=== PATIENT | female | born 1985 | race Caucasian/White ===

== ENCOUNTER 2024-04-05 14:56 | Inpatient (IN) | payer BC, SELFPAY ==
[2024-04-03] VITALS (7 sets, daily range): BP systolic 125–197; BP diastolic 79–141; BMI 27.1; BMI 26.3
--- NOTE | 2024-04-03 13:51 | EDRN ---
Dr. Prakash is in room w/pt. IV started though unable to draw any blood at this time.
--- NOTE | 2024-04-03 13:52 | EDRN ---
Pt on arrival to room pt shaking all over her body, breathing fast in a way as if unable to catch her breath, muscles tight and all over shaking. Attempting IV access this RN speaking calmly to pt attempting to calm her and pt after IV access
obtained calmed down, requested a blanket and is now quiet. BP remains very high at this time.
--- NOTE | 2024-04-03 13:58 | ED.GENMED ---
History of Present Illness
General
Chief Complaint: Anxiety
Source: patient and other (Staff from patient's behavioral health unit)
Exam Limitations: none
Time Seen by Provider: 04/03/24 13:43
Nursing documentation reviewed up to this point in time: agreed with
History of Present Illness
History of Present Illness:
38-year-old female with a past medical history of PTSD and panic attacks presents to the emergency room from [id number] where she has been staying as part of her 30-day program; she presents for poorly controlled panic
attacks. Patient apparently checked into this program 2 days, checked in due to increasing panic attacks for the past 2 weeks or so. She denies any specific trigger. She says she will get extremely anxious began hyperventilating have pain in her
chest, paresthesias all over, tremulous. Her symptoms do not resolve until she gets medication for anxiety. According to staff member from the facility who accompanies patient, she has been in the state of extreme panic over the past 12 hours.
Apparently she will be in extreme panic, will get medications to sedate her and she will fall asleep; apparently when she wakes up she is once again in extreme panic. This morning despite receiving 1 mg total of Ativan, 0.1 mg of clonidine, 10 mg
of Lexapro, 25 mg of Vistaril, 25 mg of quetiapine patient still in extreme panic and so she was brought to the emergency room for assessment. On arrival she was hyperventilating and appeared extremely anxious but shortly after settling into the
bed patient became much more calm and is now resting comfortably and somewhat sedate status post above medications. She says that her symptoms have resolved with medications but she is very anxious that when she wakes up again she will once again
be in a panic. She has no symptoms at time of my assessment. Denies suicidality or homicidality.
Past History
Past History
ED Past Medical History: Other ()
ED Past Surgical History: Orthopedic (knee)
Social History
Tobacco: Non-smoker
Alcohol: None
Living: with family
Employment: Employed
Family History
Family History: Other (Noncontributory)
Review of Systems
Review of Systems
All Other Systems: ROS reviewed and negative except as documented in HPI and ROS
Constitutional: Denies fever
Respiratory: Denies trouble breathing
Cardiac: Denies chest pain
ABD/GI: Denies abdominal pain
: Denies flank pain
Musculoskeletal: Denies neck pain or back pain
Neurological: Denies headache
Psychiatric: Reports anxiety; Denies suicidal
Phy Exam
Physical Exam
Physical Exam:
Note: I witnessed patient walking down the hallway towards her room and she was hyperventilating, crying and was very anxious appearing; my exam took place after she arrived in her room and had resting in bed for short period
General: Sleeping comfortably in the bed, tired but arousable, not in any distress
Head: Normocephalic, atraumatic
Eyes: Conjunctiva normal, EOMI
Throat: Airway intact, handling secretions
Neck: Trachea midline, supple without meningismus
Lungs: Clear to auscultation bilaterally, no wheezing, rales, rhonchi
Heart: Regular rate and rhythm, no murmurs, gallops, or rubs�tachycardia resolved by my assessment
Abd: Soft, non distended, nontender
Neuro: No gross deficits
Skin: no rash
Extremities: No edema in extremities, equal pulses in all extremities
Scores
Heart Failure Risk
Heart Failure Risk Score: Not Applicable
Heart Score for Chest Pain Patients
STEMI patient?: Not applicable
Withdrawal Assessment of Alcohol
Withdrawal Assessment Completed?: Not applicable
Course
Orders/Labs/Results
Orders:
Orders
04/03/24 13:44
Lorazepam [Ativan] 1 mg IV NOW STA
04/03/24 13:45
Drug Screen, Urine [Urine Drug Abuse Screen] Urgent
Test Result ONCE
04/03/24 13:57
Crisis Consult Routine
Reason for Consult: panic
04/03/24 14:04
Electrocardiogram (*1) Urgent
Reason for Study: Chest Pain
EKG- Treatment ONCE
04/03/24 14:25
Alcohol Urgent
Complete Blood Count/With Diff Urgent
Comprehensive Metabolic Panel Urgent
HCG, Serum Qualitative Screen Urgent
Salicylate Urgent
TSH Reflex To Free T4 Urgent
Troponin I Urgent
04/03/24 14:41
Lorazepam [Ativan] 0.5 mg IV NOW STA
Lorazepam [Ativan] 2 mg .ROUTE .STK-MED ONE
04/03/24 14:49
PSYCHIATRY CONSULT Urgent
Consulting Provider: Jose A Thayer
Was physician already notified: Yes
04/03/24 15:11
Haloperidol Lactate [Haldol] 1 mg IV NOW STA
Lorazepam [Ativan] 0.5 mg IV NOW STA
04/03/24 15:15
CT Chest/abd/pelvis Angio W/wo Urgent
Comment:
Reason For Exam: severe CP, eval for aortic dissection
04/03/24 17:09
Aspirin Chewable [Low Strength Aspirin] 324 mg PO NOW STA
Metoprolol [Lopressor] 5 mg IV NOW STA
04/03/24 17:30
Troponin I Urgent
Abnormal Lab Results
04/03/24
14:25
WBC 12.7 H 10^3/uL
(4.8-10.8)
Abs Immat Gran (auto) 0.1 H 10^3/uL
(0-0.05)
Absolute Neuts (auto) 11.2 H 10^3/uL
(1.4-6.5)
Absolute Lymphs (auto) 1.0 L 10^3/uL
(1.2-3.4)
Neutrophils % 88.3 H %
(42.2-75.2)
Lymphocytes % 7.8 L %
(20.5-51.1)
Glucose 113 H mg/dl
(70-99)
AST 37 H U/L
(14-36)
ALT 36 H U/L
(0-35)
Troponin I 0.061 H* ng/ml
Salicylates < 1.0 L mg/dl
(2.0-20.0)
04/03/24 14:25
04/03/24 14:25
Vital Signs
Initial and Last Documented VS:
Initial Vital Signs
Temp Pulse Resp Pulse Ox
36.7 C 120 16 94
04/03/24 12:59 04/03/24 12:59 04/03/24 12:59 04/03/24 12:59
Last Documented Vital Signs
Temp Pulse Resp BP Pulse Ox
36.7 C 120 16 170/106 94
04/03/24 12:59 04/03/24 12:59 04/03/24 12:59 04/03/24 14:31 04/03/24 12:59
MDM/Problems Addressed
Differential Diagnosis Includes:
Panic attacks, dysrhythmia, hyperthyroidism
MDM/Problems Addressed:
38-year-old female presents for evaluation of poorly controlled panic attacks�she is currently checked in in a behavioral health program but they are having difficulty controlling her panic attacks�essentially she will be in a state of panic
requiring significant sedating medications and when she wakes up/medications wear off she becomes once again in a state of extreme panic. Initially on her arrival she was very anxious appearing and hyperventilating, tearful. Shortly after settling
into the room she became much more calm�suspect that medications given prehospital began to take effect. Will place an IV send labs including a CBC and a CMP, thyroid studies, hCG. Check EKG and troponin in an abundance of caution. I did discuss
the case with crisis team to perform an assessment�unclear if inpatient psychiatric treatment might benefit patient; she is currently staying overnight at this program but it appears to be more of a residential program rather than inpatient
psychiatric unit.
Patient is becoming increasingly anxious she says that she is feeling tremendous panic and is requesting medication. Will treat with Haldol and Ativan.
Patient's initial blood work came back she is a leukocytosis to 12.7. Her CMP shows no clinically significant abnormalities. Her initial troponin is elevated to 0.061�will need to trend this value but certainly with this finding concerned that her
symptoms were not panic related. Will send for a CTA of the chest given her severe hypertension and rule out dissection.
CTA no dissection no PE. Suspect that tachycardia and hypertension related to panic may account for troponin elevation but nevertheless we will admit for trending of troponins. Will treat with aspirin. Toprol for tachycardia. Symptomatic
treatment for panic. Case discussed with hospitalist for admission. I did discuss with psychiatry who saw patient in the ER and are following.
Chronic conditions affecting care:
PTSD/panic attacks
Acute Exacerbation and/or Progression of Chronic Illness:
Acutely hypertensive in the setting of panic attack�resolved as patient became more calm, no indication for emergent antihypertensives
Acute Exacerbation and/or Progression of Chronic Illness: HTN
*Pulse Oximetry
Patient hypoxic: no
*Critical Care Note
Total Time (30-74mins, 75-104mins- exclusive of procedures): Not Applicable
Data Reviewed
Source: patient and other (Staff member from [facility])
Patient Management
Discussion with other providers: Hospitalist (Discussed with hospitalist), Inspection Clerk (Discussed with psychiatrist) and Other (Discussed with our crisis staff)
Escalation/DeEscalation of care consider admission/obs:
Admission indicated
ED Attending Note
-
Portions of this chart may have been created with voice recognition software.� Occasional wrong word or��sound alike� substitutions may have occurred due to the inherent limitations of voice recognition software.
Discharge Plan
Departure
Patient Disposition: Admit
Date of Disposition: 04/03/24
Time of Disposition: 17:18
Admit to doctor: Eliceo
Presentation/result/management discussed w/ accepting MD/DO: Hospitalist
Discharge Problem:
Chest pain, Panic attack, Hypertension
Interventions
Interventions:
*Risk Screen - Suicide Last Done: 04/03/24 12:59
*General Assessment Last Done: 04/03/24 13:27
*Neglect/Abuse Screening Last Done: 04/03/24 12:59
ED- Fall Risk Assessment Last Done: 04/03/24 13:27
*ED COVID-19 Vaccine History Last Done: 04/03/24 13:27
ED-Psychological Assessment Last Done: 04/03/24 13:40
Discharge Date and Time
Print Language: AZERI
--- NOTE | 2024-04-03 14:30 | EDRN ---
Red from Crisis in room speaking w/ pt at this time.
--- NOTE | 2024-04-03 14:31 | EDRN ---
Labs drawn and sent. Pt somnolent though arousable to voice.
--- NOTE | 2024-04-03 14:32 | EDRN ---
Pt nodded awareness of need for urine sample and cup and wipes left in room in window behind grease maker.
[2024-04-03 14:33] LABS: % Basophils 0.2 % (0-2); % Immature Granulocytes 0.5 % (0-0.5); % Lymphocytes 7.8 % (20.5-51.1); % Monocytes 3.2 % (1.7-9.3); % Neutrophils 88.3 % (42.2-75.2); Absolute Immature Granulocytes 0.1 10^3/uL (0-0.05); Absolute Monocytes 0.4 10^3/uL (0.1-0.6); Absolute Neutrophils 11.2 10^3/uL (1.4-6.5); Hematocrit 37.6 % (37.0-47.0); Hemoglobin 13.3 g/dL (12.0-16.0); Mean Corp Hgb Conc. 35.4 g/dL (33.0-37.0); Mean Corpuscular Hgb 30.5 pg (27.0-31.0); Mean Corpuscular Volume 86.2 fL (81.0-99.0); Mean Platelet Volume 9.7 fL (7.4-10.4); Nucleated Red Blood Cells % 0 %; Platelet Count 259 10^3/uL (130-400); Red Blood Cell Count 4.36 10^6/uL (4.20-5.40); Red Cell Dist. Width 12.7 % (11.5-14.5); White Blood Cell Count 12.7 10^3/uL (4.8-10.8)
[2024-04-03 14:44] LABS: HCG, Serum Qualitative Screen Negative
--- NOTE | 2024-04-03 14:45 | EDRN ---
Pt when Etherea from crisis was in room suddenly started moaning and crying out w/ shaking w/ renewed panic symtpoms.
[2024-04-03 14:46] LABS: ALT (SGPT) 36 U/L (0-35); AST (SGOT) 37 U/L (14-36); Albumin 4.7 g/dl (3.5-5.0); Alkaline Phosphatase 46 U/L (38-126); Blood Urea Nitrogen 15 mg/dl (7-17); Calcium 9.7 mg/dl (8.4-10.2); Carbon Dioxide 25 mmol/L (22-30); Chloride 99 mmol/L (98-107); Estimated Creatinine Clearance 96 ml/min; Glucose 113 mg/dl (70-99); Potassium 3.6 mmol/L (3.5-5.1); Salicylate < 1.0 mg/dl (2.0-20.0); Sodium 136 mmol/L (135-145); Total Bilirubin 1.1 mg/dl (0.2-1.3); Total Protein 7.4 g/dl (6.3-8.2); eGFR > 60.00
[2024-04-03] MEDS: ATIVAN 0.5 MG IV ×2 (14:48→15:16)
[2024-04-03 14:54] LABS: Alcohol None Detected
[2024-04-03 15:01] LABS: Troponin I 0.061 ng/ml
[2024-04-03 15:17] LABS: TSH Reflex To Free T4 1.15 uIU/ml (0.47-4.68)
[2024-04-03] MEDS: HALDOL 1 MG IV (15:17)
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
[2024-04-03] MEDS: LOW STRENGTH ASPIRIN 324 MG PO (17:29)
[2024-04-03] MEDS: LOPRESSOR 5 MG IV (17:29)
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
--- NOTE | 2024-04-03 17:35 | W.PN.UPDATE ---
Update Note
Progress Note Update
I saw and examined the patient.
The CLAIM REP Manasa note was reviewed and I agree with the note.
Comment: 38 y/o F hx of PTSD and panic attacks presents to ER for poorly controlled panic attacks. She is currently in [facility]; checked in 2 days ago for increasing anxiety x 2 weeks. She reports symptoms such as
pain in her chest, paresthesias all over, tremulous which are relieved only by meds. At present patient more calm, resting comfortably.
In ER, trop was .061 and patient has repeat pending at 530pm. CT-PE study was negative. Patient admitted obs/tele.
exam:
General: No Apparent Distress
HEENT: Normocephalic and Atraumatic
Respiratory: Negative Wheezes
Cardiac: Regular Rhythm and S1/S2
GI: Nondistended and Tender
Genito-urinary: No Costovertebral Tender
Musculoskeletal: No Edema
Neuro: AO x 3
Hematologic / Lymphatic: No Lymphadenopathy
Psych: Anxious
Assessment:
Nonischemic myocardial injury likely from panic/tachycardia
- trend trops to peak
- tele
- repeat EKG if chest pain
- Echo Friday; may consider stress test
- start Toprol XL 25mg
- PE study negative
Leukocytosis
- check UA; if persistently febrile then Bcx
- check COVID
Essential HTN
- start Toprol XL 25mg
Panic attacks
- psych consulted; prn Ativan
- continue Lexapro
DVT ppx: SCDs
Code: Full
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
[2024-04-03 18:40] LABS: Urine Albumin Trace (Neg - Trace); Urine Bilirubin Negative (Negative); Urine Character Clear (Clear); Urine Color Yellow; Urine Glucose Negative (Negative); Urine Ketone 3+ (Negative); Urine Leukocyte Negative (Negative); Urine Nitrite Negative (Negative); Urine Occult Blood Negative (Negative); Urine Specific Gravity 1.015 (<1.030); Urine Urobilinogen Negative (Neg - 1+)
[2024-04-03 18:47] LABS: Amphetamines Negative (Negative); Barbiturates Negative (Negative); Benzodiazepines Positive (Negative); Buprenorphine Negative (Negative); Cocaine Negative (Negative); Marijuana Positive (Negative); Methadone Negative (Negative); Methamphetamines Negative (Negative); Opiates Negative (Negative); Phencyclidine Negative (Negative); Tricyclic Antidepressants Negative (Negative)
[2024-04-03 19:02] LABS: Troponin I 0.069 ng/ml
[2024-04-03 19:05] LABS: Fentanyl, Urine Negative (Negative)
[2024-04-03] MEDS: TOPROL XL 25 MG PO (19:10)
[2024-04-03 19:39] LABS: COVID-19 Antigen Negative (Negative)
[2024-04-03] MEDS: SEROQUEL 25 MG PO (22:43)
[2024-04-03] MEDS: TYLENOL 650 MG PO (22:43)
--- NOTE | 2024-04-03 22:48 | PTCARENOTE ---
Pt arrived via stretcher from ED and ambulated into room 337-1 safely. Pt oriented to room, call sandoval within reach, able to make needs known.
[2024-04-04 03:26] VITALS: BP 106/68
[2024-04-04 06:02] LABS: % Basophils 0.7 % (0-2); % Eosinophils 0.5 % (0-6); % Immature Granulocytes 0.2 % (0-0.5); % Lymphocytes 36.1 % (20.5-51.1); % Monocytes 8.5 % (1.7-9.3); Absolute Basophils 0.1 10^3/uL (0-0.2); Absolute Monocytes 0.7 10^3/uL (0.1-0.6); Absolute Neutrophils 4.5 10^3/uL (1.4-6.5); Hematocrit 36.7 % (37.0-47.0); Hemoglobin 12.7 g/dL (12.0-16.0); Mean Corp Hgb Conc. 34.6 g/dL (33.0-37.0); Mean Corpuscular Hgb 30.3 pg (27.0-31.0); Mean Corpuscular Volume 87.6 fL (81.0-99.0); Mean Platelet Volume 10.1 fL (7.4-10.4); Nucleated Red Blood Cells % 0 %; Platelet Count 248 10^3/uL (130-400); Red Blood Cell Count 4.19 10^6/uL (4.20-5.40); Red Cell Dist. Width 12.9 % (11.5-14.5); White Blood Cell Count 8.4 10^3/uL (4.8-10.8)
[2024-04-04 06:22] LABS: ALT (SGPT) 32 U/L (0-35); AST (SGOT) 32 U/L (14-36); Alkaline Phosphatase 39 U/L (38-126); Blood Urea Nitrogen 12 mg/dl (7-17); Calcium 9.3 mg/dl (8.4-10.2); Carbon Dioxide 28 mmol/L (22-30); Chloride 100 mmol/L (98-107); Estimated Creatinine Clearance 96 ml/min; Glucose 95 mg/dl (70-99); HDL Cholesterol 46 mg/dl; LDL Cholesterol, Calculated 118 mg/dl; Potassium 3.6 mmol/L (3.5-5.1); Sodium 136 mmol/L (135-145); Total Cholesterol 178 mg/dl (50-199); Total Protein 6.7 g/dl (6.3-8.2); Triglyceride 72 mg/dl (10-149); Very Low Density Lipoprotein 14 mg/dl (0-30); eGFR > 60.00
[2024-04-04] MEDS: NSS (PRESERVATIVE FREE) 0.5 ML IV (06:28)
[2024-04-04] MEDS: ATIVAN 1 MG IV (06:28)
[2024-04-04 08:58] LABS: Troponin I 0.013 ng/ml
[2024-04-04] MEDS: LEXAPRO 20 MG PO (09:03)
[2024-04-04] MEDS: TOPROL XL 25 MG PO (09:03)
[2024-04-04 09:06] VITALS: BP 111/72
--- NOTE | 2024-04-04 12:30 | W.PN.UPDATE ---
Update Note
Progress Note Update
Pt. who presented yesterday to ED with panic attacks on her second day at [facility] found to have elevated Traponin, hypertension and was admitted. Lexapro was increased to 20 mg. from 10 mg. and now QTc increased to 499 (from 476) and Dr. Singh is
lowering back to 10 mg. I suggested adding gabapentin in low dose -- 100 mg. BID which can help reduce anxiety and prevent panic attacks (off-label use0. Does not cause QT prolongation. Use of Ativan would also be fine, although has addictive
potential. Pt. has never taken this before.
Today she repots she slept well overnight. No panic today. Is alert, calm, and pleasant. She wants to return to [facility] and her is supportive of this plan. Reports her out-patient psychiatrist was considering a change from Lexapro,, but I would
wait to make a change as all SSRI's potentially increase QT. Also, Seroquel can prolong QT, so if QT remains prolonged,would change to another agent.
A repeat ECG is planned. Echocardiogram tomorrow.
Psychiatry will follow.
[2024-04-04 12:42] VITALS: BP 121/75
--- NOTE | 2024-04-04 12:44 | W.PN.HOSP.TC ---
Today's Communication/Plan
-
assess response to Gabapentin
Echo Friday
Assessment / Plan
Assessment / Plan
Assessment:
Nonischemic myocardial injury likely from panic/tachycardia
- trops peaked .069
- tele - no events
- repeat EKG if chest pain
- Echo Friday
- continue Toprol XL 25mg
- PE study negative
Leukocytosis
- resolved
- UA and COVID negative
Essential HTN
- continue Toprol XL 25mg
Panic attacks
- psych consulted; prn Ativan
- continue Lexapro - initially increased to 20mg but prolonging QTC from 476 to 499. Lexapro reduced to 10mg
- Gabapentin BID added for anxiety
DVT ppx: SCDs
Code: Full
Anticipated Discharge: Within 24 hours
Subjective/Interval History
-
Date of Service: April 04, 2024
anxiety improving
no other complaints at present
Objective Data
-
Labs:
Laboratory Results
04/04/24
05:21
WBC 8.4
Hgb 12.7
Hct 36.7 L
Plt Count 248
Sodium 136
Potassium 3.6
Chloride 100
Carbon Dioxide 28
BUN 12
Creatinine 0.7
Glucose 95
Calcium 9.3
Total Bilirubin 1.0
AST 32
ALT 32
Alkaline Phosphatase 39
Vital Signs:
Vital Signs
Temp Pulse Resp BP Pulse Ox
98.3 F 61 19 121/75 98
04/04/24 12:42 04/04/24 12:42 04/04/24 12:42 04/04/24 12:42 04/04/24 12:42
I&O
04/03/24 04/04/24 04/05/24
06:59 06:59 06:59
Intake Total 960 / 960
Balance 960 / 960
Physical Exam
-
General: No Apparent Distress
HEENT: Normocephalic and Atraumatic
Respiratory: Negative Wheezes
Cardiac: Regular Rhythm and S1/S2
GI: Soft and Nontender
Musculoskeletal: No Edema
Neuro: AO x 3
Hematologic / Lymphatic: No Lymphadenopathy
Psych: Calm
Data Reviewed
-
Total Time Spent with Patient (in minutes): 41
Labs: Labs Reviewed by me
[2024-04-04 16:45] VITALS: BP 135/75
[2024-04-04] MEDS: TYLENOL 650 MG PO ×2 (16:51→22:05)
[2024-04-04 19:30] VITALS: BP 133/82
[2024-04-04] MEDS: NEURONTIN 100 MG PO (20:28)
[2024-04-04] MEDS: SEROQUEL 25 MG PO (21:20)
[2024-04-04 23:40] VITALS: BP 138/66
[2024-04-05] VITALS (25 sets, daily range): BP systolic 95–229; BP diastolic 55–135; BMI 26.5
[2024-04-05] MEDS: ATIVAN 1 MG IV (05:34)
[2024-04-05] MEDS: NSS (PRESERVATIVE FREE) 0.5 ML IV (05:35)
[2024-04-05 06:23] LABS: Hematocrit 35.8 % (37.0-47.0); Hemoglobin 12.2 g/dL (12.0-16.0); Mean Corp Hgb Conc. 34.1 g/dL (33.0-37.0); Mean Corpuscular Hgb 30.2 pg (27.0-31.0); Mean Corpuscular Volume 88.6 fL (81.0-99.0); Mean Platelet Volume 10.1 fL (7.4-10.4); Platelet Count 235 10^3/uL (130-400); Red Blood Cell Count 4.04 10^6/uL (4.20-5.40); White Blood Cell Count 6.9 10^3/uL (4.8-10.8)
[2024-04-05 06:52] LABS: Blood Urea Nitrogen 10 mg/dl (7-17); Carbon Dioxide 25 mmol/L (22-30); Chloride 102 mmol/L (98-107); Estimated Creatinine Clearance 96 ml/min; Glucose 87 mg/dl (70-99); Potassium 3.9 mmol/L (3.5-5.1); Sodium 136 mmol/L (135-145); eGFR > 60.00
[2024-04-05] MEDS: NEURONTIN 100 MG PO ×2 (08:16→21:21)
[2024-04-05] MEDS: LEXAPRO 10 MG PO (08:17)
[2024-04-05] MEDS: BENADRYL 25 MG PO (08:17)
[2024-04-05] MEDS: TOPROL XL 25 MG PO (08:17)
[2024-04-05] MEDS: ATIVAN 0.5 MG IV (08:55)
[2024-04-05] MEDS: NSS (PRESERVATIVE FREE) 0.25 ML IV (08:55)
--- NOTE | 2024-04-05 09:55 | W.PN.HOSP.TC ---
Today's Communication/Plan
-
Prn Ativan
Haldol x 1
Psych urgently consulted for additional help for severe acute panic attack
trops downtrended, no active chest pain
Echo if able to tolerate
continue BB
Patient has removed tele
Assessment / Plan
Assessment / Plan
Assessment:
Nonischemic myocardial injury likely from panic/tachycardia
- trops peaked .069
- tele - no events
- repeat EKG if chest pain
- Echo Friday if able to tolerate (in severe panic attack currently)
- continue Toprol XL 25mg
- PE study negative
Leukocytosis
- resolved
- UA and COVID negative
Essential HTN
- continue Toprol XL 25mg
Panic attacks
- psych consulted; prn Ativan and continue Lexapro - initially increased to 20mg but prolonging QTC from 476 to 499. Lexapro reduced to 10mg.
- patient in active panic attack this AM; unresponsive to Ativan (total 1.5mg in 5 hours). Will give Haldol 1mg now
- Gabapentin BID added for anxiety was started by Dr. Thayer; patient did take this today and will monitor if this helps.
- psych urgently notified for additional management
DVT ppx: SCDs
Code: Full
Anticipated Discharge: > 48 hours
Subjective/Interval History
-
Date of Service: April 05, 2024
in severe panic anxiety, reports anxiety due to health concerns, reporting she was sick with both pregnancies
Objective Data
-
Labs:
Laboratory Results
04/05/24
05:22
WBC 6.9
Hgb 12.2
Hct 35.8 L
Plt Count 235
Sodium 136
Potassium 3.9
Chloride 102
Carbon Dioxide 25
BUN 10
Creatinine 0.7
Glucose 87
Calcium 9.0
Vital Signs:
Vital Signs
Temp Pulse Resp BP Pulse Ox
97.8 F 66 19 143/79 97
04/05/24 07:10 04/05/24 07:10 04/05/24 07:10 04/05/24 07:10 04/05/24 07:10
I&O
04/04/24 04/05/24 04/06/24
06:59 06:59 06:59
Intake Total 960 / 960 2400 / 2400
Balance 960 / 960 2400 / 2400
Physical Exam
-
General: Appears in Distress
HEENT: Normocephalic and Atraumatic
Respiratory: Negative Wheezes
Cardiac: Regular Rhythm and S1/S2
GI: Soft
Musculoskeletal: No Edema
Neuro: AO x 3
Psych: Anxious (active panic attack)
Data Reviewed
-
Total Time Spent with Patient (in minutes): 45
Labs: Labs Reviewed by me
--- NOTE | 2024-04-05 10:04 | CM ---
Addendum entered by Tosha Spring 04/05/24 13:38:
Patient resting quietly at this time. CM called to patient Anuja Steward at [phone]. Patient sister's name is Diandra Stewart and the other person listed as a contact is Zaki who is an ex boyfriend and no longer should be on contact list,
per . Patient has been struggling with anxiety since September per . Per Anuja they were 03/27/24 and Patient did drink that day but her normal habits do not include any drinking or drugs, no Pot or other supplements. Patient does have
allergies and takes occasional benedryl for itchiness. Patient stated that they live in a row home with 12 steps to the second floor and no steps to enter. Patient has no DME at home and has a dog at home. Patient has been in and out of [facility] for several months and most recently was there Fri to and then was admitted to [facility] for anxiety. Per chart review [facility] brought patient to and do not feel that they can accept patient for treatment at this time.
Patient has a psychiatrist at [facility] and has been seen on a regular basis. Patient requested that patient nurse give her a call. CM will continue to follow for discharge planning needs.
Patient indicated that she was told that patient diagnosis was related to anxiety and her heart. CM will continue to follow for discharge planning needs.
Plan; TBD pending medical treatment plan.
Original Note:
Patient pending echo and psych assessment. Patient moved to [facility] and patient is sobbing and crying out. CM will call to prior living arrangements and per physician patient may need further psych placement. CM will continue to follow for discharge
planning needs.
Plan; tbd; pending assessments
[2024-04-05 11:35] LABS: Glucose - Point of Care 110 mg/dl (70-99)
[2024-04-05] MEDS: MORPHINE SULFATE 1 MG IV (11:52)
[2024-04-05] MEDS: ATIVAN 2 MG IV (11:53)
[2024-04-05 12:10] LABS: PT 13.5 Sec (11.4-14.6)
[2024-04-05 12:11] LABS: % Basophils 0.2 % (0-2); % Immature Granulocytes 0.5 % (0-0.5); % Lymphocytes 9.6 % (20.5-51.1); % Monocytes 5.2 % (1.7-9.3); % Neutrophils 84.5 % (42.2-75.2); Absolute Immature Granulocytes 0.1 10^3/uL (0-0.05); Absolute Lymphocytes 1.9 10^3/uL (1.2-3.4); Absolute Neutrophils 16.6 10^3/uL (1.4-6.5); Hematocrit 38.2 % (37.0-47.0); Hemoglobin 13.7 g/dL (12.0-16.0); Mean Corp Hgb Conc. 35.9 g/dL (33.0-37.0); Mean Corpuscular Hgb 30.9 pg (27.0-31.0); Mean Corpuscular Volume 86.2 fL (81.0-99.0); Mean Platelet Volume 10.1 fL (7.4-10.4); Nucleated Red Blood Cells % 0 %; Platelet Count 316 10^3/uL (130-400); Red Blood Cell Count 4.43 10^6/uL (4.20-5.40); Red Cell Dist. Width 12.9 % (11.5-14.5); White Blood Cell Count 19.7 10^3/uL (4.8-10.8)
[2024-04-05 12:21] LABS: ALT (SGPT) 33 U/L (0-35); AST (SGOT) 34 U/L (14-36); Alkaline Phosphatase 44 U/L (38-126); Blood Urea Nitrogen 10 mg/dl (7-17); Calcium 9.7 mg/dl (8.4-10.2); Carbon Dioxide 23 mmol/L (22-30); Chloride 101 mmol/L (98-107); Estimated Creatinine Clearance 84 ml/min; Glucose 120 mg/dl (70-99); Potassium 4.2 mmol/L (3.5-5.1); Sodium 139 mmol/L (135-145); Total Bilirubin 1.1 mg/dl (0.2-1.3); Total Protein 7.8 g/dl (6.3-8.2); eGFR > 60.00
[2024-04-05] MEDS: DILAUDID 0.5 MG IV (12:26)
[2024-04-05 12:32] LABS: Troponin I 0.021 ng/ml
--- NOTE | 2024-04-05 12:54 | W.PN.UPDATE ---
Update Note
Progress Note Update
MANAGER QUALITY COMPLIANCE called - patient thrashing about the room/bed, reports generalized pain, agitated. Reports severe anxiety earlier related to physical health (fear of getting sick). Noted to have tachycardia, hypertensive crisis. Given Ativan, Morphine without
improvement. d/w floor team, pharmacy, Psych - possible withdrawal component (benzos in PDMP And UDS, prior hx of opiates in tox screen from 2016). Dilaudid and Precedex drip ordered. transferred to ICU. Stat labs from MANAGER QUALITY COMPLIANCE showed leukocytosis -
cultures/CXR ordered. trop negative. ICU consulted.
--- NOTE | 2024-04-05 13:46 | PTCARENOTE ---
Pt received as a rapid response. Assessment as noted. VSS. Pt appears to be resting comfortably. No C/o pain. Awakes to voice, follows simple commands and returns to sleep. Precedex 0.7012.6cc. ECG, blood cultures, EXR performed. CM to talk to
family for history.
--- NOTE | 2024-04-05 14:14 | W.PN.UPDATE ---
Update Note
Progress Note Update
Pt seen, reviewed with medical team. Pt having possible panic attack, which lasted through the morning, involved pt yelling out and writhing in bed as if in pain. Pt seen with multiple staff intervening. Reviewed hx- came from [facility],
prescribed Clonidine, Seroquel 25 mg, Hydroxyzine, very limited number of Ativan 0.5 mg, all on prn basis. Also on Lexapro 10 mg daily. UDS + only for MJ, benzo. Pt given multiple doses of Ativan this morning with no relief of agitated/anxious
state. Pt was given Morphine, Ativan, then finally calmed/sedated with Precedex. Unable to effectively interview pt; now being transferred to ICU. QTc lengthened- 499 today.
Imp: Hx of panic d/o, although current presentation not typical for panic/anxiety attack. Pt may be experiencing withdrawal from illicit substance along with prescribed combination of medications
Rec: agree with Precedex, continuing to monitor for withdrawal symptoms
will follow
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
[2024-04-05] MEDS: PRECEDEX 100 IV (16:52)
--- NOTE | 2024-04-05 16:54 | PTCARENOTE ---
Pt continues to rest comfortably without signs of anxiety.
--- NOTE | 2024-04-05 19:56 | RR ---
A Rapid Response was called on this patient, please see Rapid Response form.
--- NOTE | 2024-04-05 19:58 | RR ---
A Rapid Response was called on this patient, please see Rapid Response form.
Patient presented with increasing anxiety and restlessness at about 8:30am despite 5:30am dose of 2mg PRN Ativan. Attending, notified, order obtained for 0.5mg IV Ativan x1 now and patient transferred to private room 321 and staff member remained
at bedside. Various nursing interventions for anxiety attempted without positive effect. Patient's behavior escalated throughout the morning,diaphoretic, c/o chest pain, vomiting, writhing in bed, screaming, pulling off telemetry leads. Unable to
obtain EKG d/t excessive patient movement.
Attending and psychiatry MD made aware and requested at bedside. Patient behavior continued to escalate, flailing in bed, screaming uncontrollably, hyperventilating. Patient was tachycardic to 120's and BP elevated to 200's/100's. Rapid response
called at about 12:30hrs. Additional dose of Ativan 2mg and 1mg morphine ordered and administered. ICU RNs at bedside. Attending ordered Precedex gtt and 0.5mg dilaudid. CLINIC RECEPTIONIST's started gtt and after about 15minutes pt behavior calmed
sufficiently to transport patient to ICU. This RN called ICU to give report to RN receiving transfer.
[2024-04-05] MEDS: SEROQUEL 25 MG PO (21:21)
[2024-04-06] VITALS (14 sets, daily range): BP systolic 89–146; BP diastolic 47–80; BMI 27.0
[2024-04-06] MEDS: PRECEDEX 100 IV (03:06)
--- NOTE | 2024-04-06 05:09 | PTCARENOTE ---
Pt received at 19:00. Initial assessment as documented. Pt remains on precedex as ordered. RASS = -1 to -2, calm and cooperative when awake. Safe environment maintained, call sandoval within reach. Denies feelings of anxiety.
[2024-04-06 05:11] LABS: Hematocrit 36.3 % (37.0-47.0); Hemoglobin 12.2 g/dL (12.0-16.0); Mean Corp Hgb Conc. 33.6 g/dL (33.0-37.0); Mean Corpuscular Hgb 29.8 pg (27.0-31.0); Mean Corpuscular Volume 88.5 fL (81.0-99.0); Mean Platelet Volume 9.6 fL (7.4-10.4); Platelet Count 228 10^3/uL (130-400); White Blood Cell Count 8.4 10^3/uL (4.8-10.8)
[2024-04-06 05:15] LABS: ALT (SGPT) 27 U/L (0-35); AST (SGOT) 26 U/L (14-36); Albumin 3.8 g/dl (3.5-5.0); Alkaline Phosphatase 38 U/L (38-126); Blood Urea Nitrogen 8 mg/dl (7-17); Carbon Dioxide 31 mmol/L (22-30); Chloride 100 mmol/L (98-107); Creatine Phosphokinase 135 U/L (30-135); Estimated Creatinine Clearance 112 ml/min; Glucose 98 mg/dl (70-99); Potassium 3.7 mmol/L (3.5-5.1); Sodium 136 mmol/L (135-145); Total Bilirubin 1.1 mg/dl (0.2-1.3); Total Protein 6.3 g/dl (6.3-8.2); eGFR > 60.00
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
[2024-04-06] MEDS: TOPROL XL PO ×2 (08:21→08:24)
[2024-04-06] MEDS: LEXAPRO 10 MG PO (08:22)
[2024-04-06] MEDS: NEURONTIN 100 MG PO (08:22)
[2024-04-06] MEDS: SEROQUEL 25 MG PO ×2 (08:22→17:05)
--- NOTE | 2024-04-06 09:33 | PTCARENOTE ---
Pt received at 0700. Initial assessment as documented. Weaning precedex due to Pt disposition. RASS = -1 to 0, calm and cooperative when awake. Safe environment maintained, call sandoval within reach. Denies feelings of anxiety
--- NOTE | 2024-04-06 10:34 | W.PN.HOSP.TC ---
Addendum entered and electronically signed by Jose Singh MD 04/06/24 15:19:
stop Toprol at admission. not felt to be primary cardiac origin of chest pain, but rather likely panic induced
Addendum entered and electronically signed by Jose Singh MD 04/06/24 14:38:
Echo can be deferred to outpatient setting
Original Note:
Today's Communication/Plan
-
continue Seroquel, Lexapro - check QTc
wean Precedex
Psychiatric consultation with interview
Case management for dc planning
can transfer from ICU once drip weaned.
d/w psych/RN/CM/ICU teams
Assessment / Plan
Assessment / Plan
Assessment:
Panic attacks, severe
- MRI ASSISTANT 04/05/24 with escalating agitation resulting in thrashing about the room/bed - resulting in pain, restlessness and panic/anxiety - did not respond to Ativan or morphine
- required precedex drip; wean as able
- more calm today
- continue BID Seroquel for now; check QTc
- remains on Gabapentin BID - defer to psychiatry on ongoing use
- prn Ativan
- patient confirms inpatient psych status (self committed) [facility] Avendano[facility]IOR MATERIALS SCIENTIST[facility] is prescribing provider.
Nonischemic myocardial injury likely from panic/tachycardia
- trops peaked .069
- tele - no events
- repeat EKG if chest pain
- Echo if able to tolerate
- continue Toprol XL 25mg; parameters ordered
- PE study negative
Leukocytosis
- resolved
- UA and COVID negative
Essential HTN
- continue Toprol XL 25mg; parameters ordered
DVT ppx: SCDs
Code: Full
Total Critical Care Time 41 minutes. I was immediately available to the patient and staff. I personally examined, reviewed labs, diagnostic images/reports, interpretations, treatment plans, discussed patient care with other providers and family
or caregivers (if patient is unable to make decisions), entered orders as appropriate and documented the medical record.
Anticipated Discharge: Within 24 hours
Subjective/Interval History
-
Date of Service: April 06, 2024
After yesterdays MRI ASSISTANT, more calm through evening and now weaning Precedex. No agitation or thrashing
Denies any anxiety at present
Objective Data
-
Labs:
Laboratory Results
04/06/24
04:31
WBC 8.4
Hgb 12.2
Hct 36.3 L
Plt Count 228 D
Sodium 136
Potassium 3.7
Chloride 100
Carbon Dioxide 31 H
BUN 8
Creatinine 0.6
Glucose 98
Calcium 9.0
Total Bilirubin 1.1
AST 26
ALT 27
Alkaline Phosphatase 38
Vital Signs:
Vital Signs
Temp Pulse Resp BP Pulse Ox
97.6 F 58 16 98/51 97
04/06/24 07:40 04/06/24 10:00 04/06/24 10:00 04/06/24 10:00 04/06/24 09:45
I&O
04/05/24 04/06/24 04/07/24
06:59 06:59 06:59
Intake Total 2400 / 2400
Balance 2400 / 2400
Physical Exam
-
General: No Apparent Distress
HEENT: Normocephalic and Atraumatic
Respiratory: Negative Wheezes
Cardiac: Regular Rhythm and S1/S2
GI: Soft and Nontender
Neuro: AO x 3
Hematologic / Lymphatic: No Lymphadenopathy
Psych: Calm
Data Reviewed
-
Critical Care Time (in minutes): 41
Labs: Labs Reviewed by me
[2024-04-06] MEDS: TYLENOL 650 MG PO (10:35)
--- NOTE | 2024-04-06 11:20 | PTCARENOTE ---
Precedex gtt off prior to Psychiatrist visit. Pt called RN to bedside. Pt tearful and explained that her just called and said [facility] called to say pt could not return to [facility] facility. Successful at calming pt by discussing
current safe situation and plan of care. Dr. Hagen to bedside approx 20min after episode. See Note.
--- NOTE | 2024-04-06 11:32 | W.PN.UPDATE ---
Update Note
Progress Note Update
Pt seen, reviewed with nursing and case mgt. Pt alert, oriented, calm, cooperative. Affect full, appropriate. Mood is good, pt states she is a happy person. She and just got ; they decided to use [facility] funds to pay for intensive
treatment for pt's panic attacks. Pt denies any substance use; reportedly confirmed by pt's . Pt states she was not taking the prn medications, only tried Clonidine once. [facility], supposed to stay there for 30 days for mental health treatment. Pt states she takes Lexapro 10 mg QD, Seroquel 25 mg HS, no other regular meds. No signs of psychosis, denies any SI. Pt was taken off of Precedex this morning.
Imp: Panic d/o, although some of symptoms are not typical. Appears stable for discharge, to potentially return to residential program
Rec: Would continue Lexapro and Seroquel; return to [facility] or outpatient therapy/IOP. Does not meet criteria for inpatient psych tx
--- NOTE | 2024-04-06 11:36 | CM ---
Addendum entered by Nacho Watts 04/06/24 15:55:
FROILAN has been making numerous phone calls and conversations with [facility] SALES ROUTE DRIVER HELPER and at the last conversation a few seconds ago he is confirming with his provider to whether or not pt can be accepted back.
CM spoke to pt's spouse and she expressed her very unhappy feelings regarding situation with [facility] and she stated she will call Tim.
CM received a phone call from [facility] and he confirmed that pt is accepted for admission back to [facility] today and he is requested to make sure pt will have her evening dose of medication.
is aware.
[facility] confirmed that their staff member will transport the pt at 5:00 p.m.
3W has been notified of pt's discharge.
D/C plan: return back to [facility] today. [facility] staff to transport the pt at 5:00 p.m.
Addendum entered by Nacho Watts 04/06/24 12:43:
CM spoke to [facility] SALES ROUTE DRIVER HELPER SALES ROUTE DRIVER HELPER Tim Bernardo [phone] and he stated he spoke to the pt, went over pt's concerns and her motivation to return back to [facility]. Per SALES ROUTE DRIVER HELPER Tim Bernardo he feels that
pt needs higher level of care including inpatient psychiatric hospitalization to address pt's panic attacks acuity, CM explained to SALES ROUTE DRIVER HELPER Tim Bernardo that inpatient psychiatric level of care is not recommended and insurance might denied it. Per SALES ROUTE DRIVER HELPER
Tim Bernardo he will work with [facility] to discuss pt's situation and if they will not be able to accept the pt to their inpatient hospital than pt will return back to [facility] [place]. CEO Dumont
Az agrees that pt might not meet criteria for inpatient psychiatric level of care and pt seems require higher level of care than residential inpatient psychiatric program.
CEO Tim Bernardo asked for two hours to figure out pt's next level of care: inpatient psych vs return back to [facility].
CM will follow to assist pt with discharge plan updates as hospitalization progresses
Original Note:
CM following re: discharge planning.
Discussed in Rounds, reviewed pt's chart, met with pt.
Pt presents lying on the bed with anxious mood, anxious affect, direct oriented thoughts. Pt reports she was at [facility] just one day and pt expressed her desire to return back there. Pt stated she
went to [facility] for 30 days program. Pt stated she just her [place] on Friday and decided to spend her and[place] vacation at [facility] to focus on her well being and to address her anxiety and
panic attacks. Pt reports she has 2 children 7 and 8 year of age.
According to pt is medically stable top be discharged today.
CM spoke to [facility] admissions department product sales representative and she confirmed that pt was at their facility one day and pt's medical record requested for a review and to determine whether
or not pt will be accepted back. Pt's clinical faxed to [facility] at [phone].
Per [facility] director hris Lara, if pt accepted for admission then they will transport or pt's spouse will.
D/C plan: return back to [facility] if accepted.
CM will follow with discharge plan updates as hospitalization progresses
--- NOTE | 2024-04-06 11:51 | W.PN.INTV ---
Today's Communication / Plan
Recommendations
-Potentially discharging patient today
Assessment
-
Patient is a 38-year-old female with a previous history of anxiety, panic attacks, marijuana use, PTSD, full code, who presents to the [place] emergency department on 04/03/2024 with complaints of chest pain was eventually transferred to the ICU
for multiple episodes of acute panic attacks with agitation and hyperventilation needing to the use of sedation, currently he is calm and comfortable and doing well.
1. Neuro:
Anxiety/panic attacks/depression/PTSD:
-Patient is alert, oriented, calm, cooperative
-RASS score is 0
-Psychiatry is currently following patient
-Patient is taken off Precedex today
-Continue patient on quetiapine, gabapentin, Lexapro, as needed lorazepam and haloperidol in case of agitation
-Continue to monitor QTc interval
-As needed ibuprofen for mild pain
2. Cardiovascular:
Chest pain:
-Patient no longer has chest pain that she initially had on presentation
Hypertension:
-S1-S2, regular rhythm, no murmurs
-Continue patient on Toprol 25 Mg p.o. daily
Prolonged QTc interval:
-Continue to monitor
-Heart monitor today shows QTc interval of 496
-Patient is due for repeat echocardiogram
3. Respiratory:
-Clear to auscultation
-Has no history of pulmonary disease
-Is saturating 97% on room air
4. GI:
-Soft, nontender, nondistended, normal bowel sounds
-Patient is not on GI prophylaxis
-No history of GI disease/GERD
5. Renal:
-Creatinine and BUN normal on labs
-Patient does not have a Quiñones's catheter inserted
-Patient has normal urine output
-Encourage patient to move around
6. Infectious disease:
Leukocytosis:
-Most likely reactive, trending down and normalized at 8.4 today from 19.7 yesterday
-Patient is currently not on any antibiotics
-Temperature is 97.7 and stable over the past 24 hours
7. Heme/onc:
-DVT prophylaxis is SCDs
-Transfuse packed red blood cells if hemoglobin is less than 7 or platelets are less than 20K
8. Endocrine:
-Patient has no history of diabetes
-Patient has normal TSH checked on 04/03/2024
Subjective Dataa
Subjective Data
Date of Service:
Date of Service: April 06, 2024
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
Subjective:
Pt is a 38 year old female with previous history of anxiety, panic attacks, marijuana use, PTSD, presenting to ER on 04/03/2024 from [facility] for complaints of chest pain. She was admitted to the ICU because of multiple episodes of
panic attacks and hyperventilation overnight which required sedation.
Today patient is calm, no overnight events, no fever chills, nausea, vomiting, cough, abdominal pain, shortness of breath, chills, urinary symptoms, agitation.
Currently on 0.3 mcg per 100 mL Precedex drip.
Review of Systems
General: Fever (Negative), Chills (Negative) and Pain (Negative)
Cardiopulmonary: Dyspnea (Negative), Cough (Negative), Chest Pain (Negative) and Edema (Negative)
GI: Abdominal Pain (Negative), Nausea (Negative), Vomiting (Negative), Diarrhea (Negative) and Constipation (Negative)
Neuro: Headache (Negative), Dizziness (Negative), Numbness (Negative), Weakness (Negative) and Confused (Negative)
Objective Data
Data Reviewed
Vital Signs / I&O / Oxygen:
Vital Signs
Temp Pulse Resp BP Pulse Ox
97.6 F 65 15 97/59 97
04/06/24 07:40 04/06/24 11:15 04/06/24 11:15 04/06/24 11:00 04/06/24 11:15
Intake and Output
01/09/2204/06/24 04/07/24
06:59 06:59 06:59
Intake Total 2400 / 2400
Balance 2400 / 2400
SaO2 97
Physical Exam
General: Comfortable and Other (NAD)
HEENT: Normocephalic, Anicteric and Moist Mucous Membranes
Cardiovascular: S1-S2 and Regular Rhythm
Respiratory: Clear and Non-Labored Respirations
GI: Soft, Non Distended and Non Tender
Neurology: Awake, Alert, Oriented, AO x 3 and No Motor Deficits
Skin: Warm, Dry and Good Color
Labs/Micro/Reports
Lab Data
04/06/24 04:31
04/06/24 04:31
Laboratory Results
04/05/24
11:45
PT 13.5
INR 1.00
APTT 27.0
Microbiology
04/04/24 02:12 Nose MRSA Screen - Final
No Methicillin Resistant Staphylococcus aureus isolated.
--- NOTE | 2024-04-06 15:36 | PTCARENOTE ---
Report given to SAGRARIO Morejon. Pt assisted to wheelchair and escorted to [phone] with mother visiting.
--- NOTE | 2024-04-06 15:49 | PTCARENOTE ---
Settled patient into new room from ICU. Vital signs obtained and stable, see flowsheets. Pt denies pain/nausea/anxiety at the moment. RN oriented patient and pt mother to room, bathroom, call sandoval, kitchen.
--- NOTE | 2024-04-06 15:54 | W.DS.TRANS ---
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
-
Discharge Instructions:
Discharge Diagnosis/Procedures chest pain, trop elevation - resolved. severe
panic attacks/disorder
Diet Regular
Activity As tolerated
Bathing Restrictions None
Others Tests Routine Echocardiogram through PCP office
Instructions:
Stand-Alone Forms:
Changes to Home Medications: No
Discharge Medications:
DC Medications w/original date entered in [email or web address]
escitalopram oxalate 10 mg tablet (Lexapro) 10 mg PO DAILY Depression 04/03/24
quetiapine 25 mg tablet 25 mg PO BID #60 tabs 04/06/24
Home Medication Changes
Pending Results: No
Total time spent discharging patient (in min): 41
== END 2024-04-06 18:27 | DRG 880 ==
LOC: 3 WEST ACU 14:56
PROVIDERS: Clinical Nurse Specialist Family Health; Nurse Practitioner Primary Care; ADMITTING PHYSICIAN Internal Medicine; CONSULT PHYSICIAN Psychiatry & Neurology Psychiatry; EMERGENCY PHYSICIAN Emergency Medicine; OTHER PHYSICIAN Internal Medicine
DX: F41.0 Panic disorder [episodic paroxysmal anxiety] (principal); J98.11 Atelectasis; I5A Non-ischemic myocardial injury (non-traumatic); F23 Brief psychotic disorder; F43.10 Post-traumatic stress disorder, unspecified; R06.4 Hyperventilation; M25.78 Osteophyte, vertebrae; K76.0 Fatty (change of) liver, not elsewhere classified; F12.90 Cannabis use, unspecified, uncomplicated; F32.A Depression, unspecified; E66.3 Overweight; R45.1 Restlessness and agitation; R20.2 Paresthesia of skin; M51.379 Other intervertebral disc degeneration, lumbosacral region without mention of lumbar back pain or lower extremity pain; D72.829 Elevated white blood cell count, unspecified; I10 Essential (primary) hypertension; Z11.52 Encounter for screening for COVID-19; Z91.410 Personal history of adult physical and sexual abuse; Z91.411 Personal history of adult psychological abuse; Z68.27 Body mass index [BMI] 27.0-27.9, adult
CPT/HCPCS: 71045; 71275; 74174; 80048; 80053; 80061; 80179; 80306; 80307; 81003; 82077; 82550; 82962; 84443; 84484; 84703; 85025; 85027; 85610; 85730; 87040; 87070; 87811; 93005; 96374; 96375; 96376; 99285; J2358; Q9967